=== PATIENT | male | born 1950 | race Caucasian/White ===

== ENCOUNTER 2019-07-11 08:14 | Emergency (ER) | payer MEDICARE, OTHER ==
[~2019-07-11] VITALS: Ht 172.7 cm; Wt 111.4 kg
[2019-07-11 08:15] VITALS: BP 126/78
[2019-07-11] MEDS ORDERED: CRES5TAB (08:25)
[2019-07-11] MEDS ORDERED: QC F0.52 PO (08:25)
[2019-07-11] MEDS ORDERED: MULTCAP PO (08:25)
[2019-07-11] MEDS ORDERED: ASPI81CH33 PO (08:25)
[2019-07-11] MEDS ORDERED: VITA250T4 PO (08:25)
[2019-07-11] MEDS ORDERED: SYNT75TA (08:25)
== END 2019-07-11 09:20 | disposition home or self-care (01) ==
LOC: M ED 08:14
DX: M54.31 Sciatica, right side (principal); E78.5 Hyperlipidemia, unspecified; M19.90 Unspecified osteoarthritis, unspecified site; Z79.899 Other long term (current) drug therapy; Z79.82 Long term (current) use of aspirin; Z79.890 Hormone replacement therapy

== ENCOUNTER → 2020-11-02 | Outpatient (CLI) | payer MEDICARE, OTHER ==
[~2020-11-02] MED LIST: ASPI81CH33 PO; CRES5TAB; MULTCAP PO; QC F0.52 PO; SYNT75TA; VITA250T4 PO
== END ==
LOC: M LABSMTC 08:16
PROVIDERS: ATTEND Anesthesiology
DX: Z01.812 Encounter for preprocedural laboratory examination (principal); Z20.822 Contact with and (suspected) exposure to COVID-19

== ENCOUNTER 2020-11-07 07:20 | Day surgery (SDC) | payer MEDICARE, OTHER ==
[~2020-11-07] VITALS: Ht 172.7 cm; Wt 112.0 kg
[~2020-11-07 07:20] MED LIST changes: +NS 1,000 ML IV ONE
[2020-11-07] MEDS ORDERED: LIDOCAINE 2% 100MG/5ML SDV (FOR ANES.) As Ordered ONE (08:02)
[2020-11-07] MEDS ORDERED: propofoL 200 MG/20 ML VIAL As Ordered ONE (08:02)
--- NOTE | 2020-11-07 09:36 | ROOR ---
Patient Name: Mauricio Epstein Procedure Date: 11/07/2020 9:00 AM Date of : 1950 Age: 70 Room: [facility] Gender: Male Note Status: Finalized Procedure: Colonoscopy Indications: Screening for colorectal malignant neoplasm Providers: Ross Thrasher Jr, MD Referring MD: Jong Parker MD Requesting Provider: Medicines: Propofol per Anesthesia Complications: No immediate complications. Procedure: Pre-Anesthesia Assessment: - Prior to the procedure, a History and Physical was performed, and patient medications and allergies were reviewed. The patient is competent. The risks and benefits of the procedure and the sedation options and risks were discussed with the patient. All questions were answered and informed consent was obtained. Patient identification and proposed procedure were verified by the physician and the nurse in the pre-procedure area and in the procedure room. Mental Status Examination: alert and oriented. Airway Examination: normal oropharyngeal airway and neck mobility. Respiratory Examination: clear to auscultation. CV Examination: normal. ASA Grade Assessment: II - A patient with mild systemic disease. After reviewing the risks and benefits, the patient was deemed in satisfactory condition to undergo the procedure. The anesthesia plan was to use moderate sedation / analgesia (conscious sedation). Immediately prior to administration of medications, the patient was re-assessed for adequacy to receive sedatives. The heart rate, respiratory rate, oxygen saturations, blood pressure, adequacy of pulmonary ventilation, and response to care were monitored throughout the procedure. The physical status of the patient was re-assessed after the procedure. The Colonoscope was introduced through the anus and advanced to the cecum, identified by appendiceal orifice and ileocecal valve. The colonoscopy was performed without difficulty. The patient tolerated the procedure well. Findings: The rectum, recto-sigmoid colon, sigmoid colon and transverse colon appeared normal. Five polyps were found in the descending colon, proximal transverse colon, ascending colon and cecum. The polyps were small in size. These polyps were removed with a hot snare. Resection and retrieval were complete. Impression: - The rectum, recto-sigmoid colon, sigmoid colon and transverse colon are normal. - Five small polyps in the descending colon, in the proximal transverse colon, in the ascending colon and in the cecum, removed with a hot snare. Resected and retrieved. Recommendation: - Discharge patient to home (ambulatory). - Return to my office at appointment to be scheduled. Procedure Code(s): --- Professional --- 53546, Colonoscopy, flexible; with removal of tumor(s), polyp(s), or other lesion(s) by snare technique Diagnosis Code(s): --- Professional --- Z12.11, Encounter for screening for malignant neoplasm of colon K63.5, Polyp of colon CPT copyright 2019 [employer]. All rights reserved. The codes documented in this report are preliminary and upon business development analyst review may be revised to meet current compliance requirements. Ross Thrasher MD Ross Thrasher Jr, MD 11/07/2020 9:36:07 AM Electronically signed by Ross Thrasher Jr, MD Number of Addenda: 0 Note Initiated On: 11/07/2020 9:00 AM Estimated Blood Loss: Estimated blood loss: none.
[2020-11-07 10:00] VITALS: BP 131/82
== END 2020-11-07 10:04 | disposition home or self-care (01) ==
LOC: M OPP 07:20
PROVIDERS: ATTEND Surgery
DX: Z12.11 Encounter for screening for malignant neoplasm of colon (principal); D12.6 Benign neoplasm of colon, unspecified; E03.9 Hypothyroidism, unspecified; Z79.82 Long term (current) use of aspirin; Z79.899 Other long term (current) drug therapy